=== PATIENT | male | born 1965 | race Caucasian/White ===

== ENCOUNTER 2023-11-04 05:30 | Inpatient (IN) ==
[~2023-11-04 05:30] MED LIST: OFIRMEV IV 1000 MG VIAL IV ONE
[2023-11-04] MEDS ORDERED: ANCEF VIAL 1 GRAM ONE (08:15)
[2023-11-04] MEDS ORDERED: NS 100 ML IV 100 ML ONE (08:15)
[2023-11-04] MEDS ORDERED: NOZIN NASAL SANITIZER TP ONE (08:15)
[2023-11-04] MEDS ORDERED: LR 1,000 ML IV 1,000 ML IV ONE (08:16)
[2023-11-04 09:30] VITALS: BMI 32.1
[2023-11-04] MEDS ORDERED: DUONEB 0.5 MG/3 MG (3 mL) NEB ONE (09:37)
[2023-11-04] MEDS ORDERED: HEPARIN SODIUM INJ 5000 UNITS ONE (10:05)
[2023-11-04] MEDS ORDERED: PEPCID 20 MG VIAL ONE (10:05)
[2023-11-04] MEDS ORDERED: DIPRIVAN VIAL 20 ML ONE ×2 (10:05→10:09)
[2023-11-04] MEDS ORDERED: ZOFRAN INJ 4 MG VIAL ONE (10:05)
[2023-11-04] MEDS ORDERED: FENTANYL VIAL INJ 100 mcg ONE ×2 (10:08→12:10)
[2023-11-04] MEDS ORDERED: VERSED ONE (10:08)
[2023-11-04] MEDS ORDERED: MARCAINE 0.5% ONE ×3 (11:11→13:49)
[2023-11-04] MEDS ORDERED: HEPARIN SODIUM IN D5W 75,000 UNITS/1,500 ML BAG ONE (11:12)
[2023-11-04] MEDS ORDERED: KETAMINE HCL ONE (11:34)
[2023-11-04] MEDS ORDERED: XYLOCAINE 2 % (PLAIN) ONE (11:34)
[2023-11-04] MEDS ORDERED: PRECEDEX INJ VIAL IVP ONE (11:34)
[2023-11-04] MEDS ORDERED: VISIPAQUE 100 ML ONE (12:02)
[2023-11-04] MEDS ORDERED: ROBINUL ONE (12:22)
[2023-11-04] MEDS ORDERED: HESPAN IV IN NS 500 ML IV ONE (12:33)
[2023-11-04] MEDS ORDERED: NS 1,000 ML IV 1,000 ML ONE (12:34)
[2023-11-04] MEDS ORDERED: DIPRIVAN VIAL 40 ML ONE (12:46)
[2023-11-04] MEDS ORDERED: DECADRON INJ ONE (12:56)
[2023-11-04] MEDS ORDERED: PROTAMINE SULFATE 50 MG VIAL ONE (13:25)
[2023-11-04 13:34] LABS: BASOPHILS # (AUTO) 0.1 X10^3/uL (0.0-0.1); BASOPHILS % (AUTO) 0.8 % (0.2-1.0); EOSINOPHILS # (AUTO) 0.2 x10^3/uL (0.0-0.2); EOSINOPHILS % (AUTO) 2.7 % (0.9-2.9); HEMATOCRIT 34.6 % (42.0-54.0); HEMOGLOBIN 11.5 g/dL (13.5-18.0); LYMPHOCYTES # (AUTO) 1.2 X10^3/uL (1.3-2.9); LYMPHOCYTES % (AUTO) 18.7 % (21.0-51.0); MEAN CORPUSCULAR HEMOGLOBIN 30.3 pg (27.0-34.0); MEAN CORPUSCULAR HGB CONC 33.2 g/dL (33.0-35.0); MEAN CORPUSCULAR VOLUME 91.1 fL (80.0-100.0); MEAN PLATELET VOLUME 9.6 fL (7.4-11.0); MONOCYTES # (AUTO) 0.3 x10^3/uL (0.3-0.8); MONOCYTES % (AUTO) 4.5 % (0.0-13.0); NEUTROPHILS # (AUTO) 4.7 x10^3/uL (2.2-4.8); NEUTROPHILS % (AUTO) 73.3 % (42.0-75.0); PLATELET COUNT 141 X10^3/uL (150.0-450.0); RED BLOOD COUNT 3.79 X10^6/uL (4.7-6.0); RED CELL DISTRIBUTION WIDTH 13.9 % (11.6-16.5); WHITE BLOOD COUNT 6.5 X10^3/uL (3.6-10.0)
[2023-11-04] MEDS ORDERED: NEO-SYNEPHRINE INJ ONE (13:41)
[2023-11-04] MEDS ORDERED: DILAUDID INJ IVP PRN ×2 (14:11→14:19)
[2023-11-04] MEDS ORDERED: ZOFRAN INJ 4 MG VIAL IVP PRN (14:11)
[2023-11-04] MEDS ORDERED: REGLAN INJ 10 MG VIAL IVP PRN (14:11)
[2023-11-04] MEDS ORDERED: BARHEMSYS INJ IVP PRN (14:11)
[2023-11-04] MEDS ORDERED: BENADRYL INJ 50 MG VIAL IVP PRN (14:11)
[2023-11-04] MEDS ORDERED: PERCOCET TAB 5/325 MG PO PRN (14:19)
--- NOTE | 2023-11-04 14:19 | OR.IMMED ---
IMMEDIATE POST-OP NOTE Immediate Post-Op Note Date of surgery/procedure: 11/04/23 Pre-Op Diagnosis: Critical ischemia left leg , completely occluded left common iliac artery ,completely occluded left popliteal artery with 3 vessel runoff Post-Op Diagnosis: critical schema left leg , completely occluded left common iliac artery Procedure: bilateral common femoral cut-downs, arteriogram left leg, femoral femoral bypass Description of Procedure: see dictation Surgeon/Route Vending Machine Servicer: Joelle Findings: as above Estimated Blood Loss: 600cc Complications: none Progress Notes: Patient taking to PACU with excellent Doppler signals in both ankles , no bleeding from each groin , hemoglobin equals 11.5, patient. Not tacycardic , hypertensive
[2023-11-04] MEDS: LR 1,000 ML IV 1,000 ML IV SCH ×2 (15:40→23:15)
[2023-11-04] MEDS ORDERED: NS IRRIGATION* 500 ML IR ONE (16:23)
[2023-11-05 05:32] LABS: HEMOGLOBIN 9.9 g/dL (13.5-18.0)
[2023-11-05 05:39] LABS: BASOPHILS % (AUTO) 0.3 % (0.2-1.0); HEMATOCRIT 29.1 % (42.0-54.0); LYMPHOCYTES # (AUTO) 0.4 X10^3/uL (1.3-2.9); LYMPHOCYTES % (AUTO) 2.9 % (21.0-51.0); MEAN CORPUSCULAR HEMOGLOBIN 30.7 pg (27.0-34.0); MEAN CORPUSCULAR VOLUME 90.4 fL (80.0-100.0); MONOCYTES # (AUTO) 0.3 x10^3/uL (0.3-0.8); MONOCYTES % (AUTO) 2.6 % (0.0-13.0); NEUTROPHILS # (AUTO) 11.7 x10^3/uL (2.2-4.8); NEUTROPHILS % (AUTO) 94.2 % (42.0-75.0); PLATELET COUNT 146 X10^3/uL (150.0-450.0); RED BLOOD COUNT 3.22 X10^6/uL (4.7-6.0); RED CELL DISTRIBUTION WIDTH 13.7 % (11.6-16.5); WHITE BLOOD COUNT 12.4 X10^3/uL (3.6-10.0)
[2023-11-05 05:41] LABS: BLOOD UREA NITROGEN 12 mg/dL (7-18); CALCIUM 7.5 mg/dL (8.5-10.1); CARBON DIOXIDE 24.7 mmol/L (21-32); CHLORIDE 103 mmol/L (98-107); COR NA(FOR HYPERGLY) 137 mmol/L (136-145); CREATININE 1.16 mg/dL (0.70-1.30); GLUCOSE 221 mg/dL (65-99); POTASSIUM 4.3 mmol/L (3.5-5.1); SODIUM 134 mmol/L (136-145); eGFR NON BLACK RACES > 60 (>60)
[2023-11-05 06:07] LABS: PLATELET MORPHOLOGY COMMENT NORMAL (NORMAL)
[2023-11-05] MEDS ORDERED: TOPROL XL PO ONE (08:55)
[2023-11-05] MEDS ORDERED: ZETIA TAB 10 MG PO SCH (09:00)
[2023-11-05] MEDS ORDERED: LOVENOX INJ 40 MG SYR SC SCH (09:00)
[2023-11-05] MEDS ORDERED: COZAAR PO SCH (09:00)
[2023-11-05] MEDS ORDERED: TOPROL XL PO SCH (09:00)
[2023-11-05] MEDS ORDERED: ASPIRIN EC 81 MG PO SCH (09:00)
[2023-11-05 09:15] VITALS: TEMP 97.8
[2023-11-05] MEDS: LR 1,000 ML IV 1,000 ML IV SCH (09:16)
--- NOTE | 2023-11-05 12:16 | W.DIS.FURT ---
Summary of Discharge Discharge Summary of Date Date of Exam: 11/05/23 Admission Date Date of Admission: 11/04/23 Admission Diagnosis Hospital Course: This patient is a 58 year old male with significant history of peripheral vascular disease and chronic tobacco abuse. He is known to have common left iliac artery occlusion, which could not be crossed either from above or below in a peripheral fashion . CT and also suggested possible left popliteal occlusion. Patient was taken to the operating suite yesterday where he underwent arteriogram of the the left leg showing no significant occlusion. At that time he underwent a femoral femoral bypass to resolve the left common iliac artery occlusion . He has done well . He has excellent Hood Fitter signals in both ankles period he is walking without assistance and will be discharged home on his usual medications.These will include Xarelto and aspirin.He will be given prescription for Percocet , 5 milligram tablets , 1 every 6 hours PRN pain , He will follow up with me in 1 week . I have encouraged him to stop smoking. I'm just talking to myself. Vital Signs: Vital Signs (72 hours) 11/04/23 08:40 11/04/23 08:40 11/04/23 14:02 Temperature 97.5 F L 97.8 F Pulse Rate 56 L 56 L 75 Respiratory Rate 16 16 Blood Pressure 172/72 140/75 O2 Sat by Pulse Oximetry 100 95 Oxygen Delivery Method Room Air Nasal Cannula 11/04/23 14:17 11/04/23 14:22 11/04/23 14:27 Temperature Pulse Rate 78 76 73 Respiratory Rate 17 18 18 Blood Pressure 142/63 134/62 137/58 O2 Sat by Pulse Oximetry 95 95 99 Oxygen Delivery Method Nasal Cannula Nasal Cannula Nasal Cannula 11/04/23 14:07 11/04/23 14:12 11/04/23 14:32 Temperature Pulse Rate 78 78 71 Respiratory Rate 16 16 18 Blood Pressure 177/79 153/67 114/57 O2 Sat by Pulse Oximetry 94 L 95 99 Oxygen Delivery Method Nasal Cannula Nasal Cannula Nasal Cannula 11/04/23 14:53 11/04/23 15:05 11/04/23 15:06 Temperature Pulse Rate 65 Respiratory Rate 11 L 9 L Blood Pressure 106/54 O2 Sat by Pulse Oximetry 99 Oxygen Delivery Method 11/04/23 15:06 11/04/23 15:15 11/04/23 15:15 Temperature Pulse Rate 65 62 Respiratory Rate 6 L 13 Blood Pressure 103/54 O2 Sat by Pulse Oximetry 99 97 Oxygen Delivery Method 11/04/23 15:30 11/04/23 15:30 11/04/23 15:45 Temperature Pulse Rate 59 L 55 L Respiratory Rate 12 12 Blood Pressure 100/52 O2 Sat by Pulse Oximetry 99 100 Oxygen Delivery Method 11/04/23 15:45 11/04/23 16:00 11/04/23 16:00 Temperature Pulse Rate 56 L Respiratory Rate 16 Blood Pressure 96/53 106/52 O2 Sat by Pulse Oximetry 96 Oxygen Delivery Method 11/04/23 16:15 11/04/23 16:15 11/04/23 15:23 Temperature Pulse Rate 54 L Respiratory Rate 18 11 L Blood Pressure 104/54 O2 Sat by Pulse Oximetry 97 Oxygen Delivery Method 11/04/23 16:30 11/04/23 16:30 11/04/23 16:45 Temperature Pulse Rate 50 L 48 L Respiratory Rate 13 10 L Blood Pressure 98/51 O2 Sat by Pulse Oximetry 96 97 Oxygen Delivery Method 11/04/23 16:45 11/04/23 17:00 11/04/23 17:00 Temperature Pulse Rate 48 L Respiratory Rate 15 Blood Pressure 101/51 106/53 O2 Sat by Pulse Oximetry 96 Oxygen Delivery Method 11/04/23 17:00 11/04/23 17:00 11/04/23 17:15 Temperature Pulse Rate 48 L 58 L Respiratory Rate 15 21 Blood Pressure 106/53 O2 Sat by Pulse Oximetry 96 98 Oxygen Delivery Method 11/04/23 17:15 11/04/23 17:30 11/04/23 17:30 Temperature Pulse Rate 49 L Respiratory Rate 13 Blood Pressure 114/57 106/52 O2 Sat by Pulse Oximetry 97 Oxygen Delivery Method 11/04/23 17:45 11/04/23 17:45 11/04/23 18:00 Temperature Pulse Rate 58 L Respiratory Rate 25 H Blood Pressure 116/58 118/59 O2 Sat by Pulse Oximetry 100 Oxygen Delivery Method 11/04/23 18:00 11/04/23 18:15 11/04/23 18:21 Temperature Pulse Rate 54 L 51 L 58 L Respiratory Rate 24 13 24 Blood Pressure O2 Sat by Pulse Oximetry 99 97 99 Oxygen Delivery Method 11/04/23 18:21 11/04/23 18:30 11/04/23 18:30 Temperature Pulse Rate 51 L Respiratory Rate 15 Blood Pressure 121/56 109/55 O2 Sat by Pulse Oximetry 98 Oxygen Delivery Method 11/04/23 18:45 11/04/23 18:46 11/04/23 18:46 Temperature Pulse Rate 51 L 58 L Respiratory Rate 19 29 H Blood Pressure 116/56 O2 Sat by Pulse Oximetry 100 100 Oxygen Delivery Method 11/04/23 19:00 11/04/23 20:00 11/04/23 19:00 Temperature 98.0 F Pulse Rate 50 L 53 L Respiratory Rate 22 20 Blood Pressure 126/61 107/53 O2 Sat by Pulse Oximetry 99 97 Oxygen Delivery Method Room Air Room Air Room Air 11/04/23 21:00 11/04/23 22:00 11/04/23 23:00 Temperature Pulse Rate 52 L 57 L 54 L Respiratory Rate 20 22 23 Blood Pressure 131/59 124/59 118/58 O2 Sat by Pulse Oximetry 97 98 98 Oxygen Delivery Method Room Air Room Air Room Air 11/05/23 00:00 11/05/23 01:00 11/05/23 02:00 Temperature 97.7 F Pulse Rate 57 L 59 L 62 Respiratory Rate 22 20 18 Blood Pressure 120/58 128/60 127/62 O2 Sat by Pulse Oximetry 99 98 99 Oxygen Delivery Method Room Air Room Air Room Air 11/05/23 03:00 11/05/23 04:00 11/05/23 04:15 Temperature 98.2 F Pulse Rate 60 62 Respiratory Rate 20 14 12 Blood Pressure 151/66 144/56 O2 Sat by Pulse Oximetry 99 99 Oxygen Delivery Method Room Air Room Air 11/05/23 05:00 11/05/23 06:00 11/05/23 05:15 Temperature Pulse Rate 61 59 L Respiratory Rate 23 14 14 Blood Pressure 153/67 140/63 O2 Sat by Pulse Oximetry 99 99 Oxygen Delivery Method Room Air Room Air 11/05/23 07:00 11/05/23 06:45 11/05/23 07:00 Temperature Pulse Rate 59 L Respiratory Rate 17 Blood Pressure 143/62 O2 Sat by Pulse Oximetry 98 Oxygen Delivery Method Room Air 11/05/23 07:00 11/05/23 07:15 11/05/23 07:30 Temperature Pulse Rate 56 L 56 L 57 L Respiratory Rate 19 17 21 Blood Pressure O2 Sat by Pulse Oximetry 99 98 98 Oxygen Delivery Method 11/05/23 07:30 11/05/23 07:45 11/05/23 08:00 Temperature Pulse Rate 72 Respiratory Rate 26 H Blood Pressure 141/61 136/56 O2 Sat by Pulse Oximetry 99 Oxygen Delivery Method 11/05/23 08:00 11/05/23 08:15 11/05/23 08:30 Temperature Pulse Rate 64 60 Respiratory Rate 22 23 Blood Pressure 136/58 O2 Sat by Pulse Oximetry 99 99 Oxygen Delivery Method 11/05/23 08:30 11/05/23 08:45 11/05/23 09:00 Temperature 97.8 F Pulse Rate 60 60 Respiratory Rate 24 21 Blood Pressure 133/60 O2 Sat by Pulse Oximetry 98 99 Oxygen Delivery Method 11/05/23 09:00 11/05/23 09:15 11/05/23 09:30 Temperature Pulse Rate 63 63 61 Respiratory Rate 22 23 25 H Blood Pressure O2 Sat by Pulse Oximetry 99 99 99 Oxygen Delivery Method 11/05/23 09:31 11/05/23 09:31 11/05/23 09:45 Temperature Pulse Rate 62 61 Respiratory Rate 24 21 Blood Pressure 130/60 O2 Sat by Pulse Oximetry 99 99 Oxygen Delivery Method 11/05/23 10:00 11/05/23 10:00 11/05/23 10:15 Temperature Pulse Rate 62 67 Respiratory Rate 24 34 H Blood Pressure 147/65 O2 Sat by Pulse Oximetry 100 100 Oxygen Delivery Method 11/05/23 10:30 11/05/23 10:41 11/05/23 10:41 Temperature Pulse Rate 66 66 Respiratory Rate 28 H 20 Blood Pressure 143/63 O2 Sat by Pulse Oximetry 98 100 Oxygen Delivery Method 11/05/23 10:45 11/05/23 11:00 11/05/23 11:00 Temperature Pulse Rate 65 62 Respiratory Rate 26 H 23 Blood Pressure 133/60 O2 Sat by Pulse Oximetry 99 99 Oxygen Delivery Method Labs: Laboratory Last Values WBC 12.4 X10^3/uL (3.6-10.0) H 11/05/23 05:00 RBC 3.22 X10^6/uL (4.7-6.0) L 11/05/23 05:00 Hgb 9.9 g/dL (13.5-18.0) L 11/05/23 05:00 Hct 29.1 % (42.0-54.0) L 11/05/23 05:00 MCV 90.4 fL (80.0-100.0) 11/05/23 05:00 MCH 30.7 pg (27.0-34.0) 11/05/23 05:00 MCHC 34.0 g/dL (33.0-35.0) 11/05/23 05:00 RDW 13.7 % (11.6-16.5) 11/05/23 05:00 Plt Count 146 X10^3/uL (150.0-450.0) L 11/05/23 05:00 Plt Count Comment Decreased (ADEQUATE) 11/05/23 05:00 MPV 10.0 fL (7.4-11.0) 11/05/23 05:00 Neut % (Auto) 94.2 % (42.0-75.0) H 11/05/23 05:00 Lymph % (Auto) 2.9 % (21.0-51.0) L 11/05/23 05:00 [place] % (Auto) 2.6 % (0.0-13.0) 11/05/23 05:00 Eos % (Auto) 0.0 % (0.9-2.9) L 11/05/23 05:00 Baso % (Auto) 0.3 % (0.2-1.0) 11/05/23 05:00 Neut # (Auto) 11.7 x10^3/uL (2.2-4.8) H 11/05/23 05:00 Lymph # (Auto) 0.4 X10^3/uL (1.3-2.9) L 11/05/23 05:00 [place] # (Auto) 0.3 x10^3/uL (0.3-0.8) 11/05/23 05:00 Eos # (Auto) 0.0 x10^3/uL (0.0-0.2) 11/05/23 05:00 Baso # (Auto) 0.0 X10^3/uL (0.0-0.1) 11/05/23 05:00 Absolute Nucleated RBC 0.0 /100WBC 11/05/23 05:00 Total Counted 100 11/05/23 05:00 Neutrophils % (Manual) 97 % (39-76) H 11/05/23 05:00 Lymphocytes % (Manual) 1 % (13-43) L 11/05/23 05:00 Monocytes % (Manual) 1 % (4-9) L 11/05/23 05:00 Eosinophils % (Manual) 1 % (0-6) 11/05/23 05:00 Plt Morphology Comment Normal (NORMAL) 11/05/23 05:00 RBC Morphology Normal (NORMAL) 11/05/23 05:00 Sodium 134 mmol/L (136-145) L 11/05/23 05:00 Corrected Sodium 137 mmol/L (136-145) 11/05/23 05:00 Potassium 4.3 mmol/L (3.5-5.1) 11/05/23 05:00 Chloride 103 mmol/L (98-107) 11/05/23 05:00 Carbon Dioxide 24.7 mmol/L (21-32) 11/05/23 05:00 BUN 12 mg/dL (7-18) 11/05/23 05:00 Creatinine 1.16 mg/dL (0.70-1.30) 11/05/23 05:00 Est GFR (MDRD) Af Amer > 60 (>60) 11/05/23 05:00 Est GFR (MDRD) Non-Af > 60 (>60) 11/05/23 05:00 Glucose 221 mg/dL (65-99) H 11/05/23 05:00 Calcium 7.5 mg/dL (8.5-10.1) L 11/05/23 05:00 Reason For Visit: FEMOROFEMORAL BYPASS Discharge Date Discharge Date: 11/05/23 Discharge Diagnosis All Active Problems (Updated 11/05/23 @ 11:56 by Felipe Lai) Critical limb ischemia of left lower extremity (Acute) Occlusion of left iliac artery (Acute) Plan of Treatment: Continue with present treatment and follow up plan. Pt is to keep follow up appointment as instructed and take medications as ordered. Discharge Medications Discharge Medications: No Known Allergies Allergy (Verified 09/18/23 06:56) CONTINUE taking the following medications rivaroxaban 2.5 mg tablet (Xarelto) 2.5 mg PO BID 11/04/23 [History] aspirin 81 mg po daily, Percocet, 5 mg , 1 PO q 6hr PRN Discharge Disposition Assessment: see hospital course . Discharge Plan Discharge Plan Hospital Course: This patient is a 58 year old male with significant history of peripheral vascular disease and chronic tobacco abuse. He is known to have common left iliac artery occlusion, which could not be crossed either from above or below in a peripheral fashion . CT and also suggested possible left popliteal occlusion. Patient was taken to the operating suite yesterday where he underwent arteriogram of the the left leg showing no significant occlusion. At that time he underwent a femoral femoral bypass to resolve the left common iliac artery occlusion . He has done well . He has excellent Hood Fitter signals in both ankles period he is walking without assistance and will be discharged home on his usual medications.These will include Xarelto and aspirin.He will be given prescription for Percocet , 5 milligram tablets , 1 every 6 hours PRN pain , He will follow up with me in 1 week . I have encouraged him to stop smoking. I'm just talking to myself. Patient Disposition: 01 HOME, SELF-CARE Condition: Stable Health Concerns: Post Hospitalization: new medications and changes needed to prevent readmission or further decline. Pt educated and given instructions on all concerns. Care Plan Goals: Problem: Pain/Alteration in Comfort Goal: Improve/ Resolve Pain; Achieve Pain Tolerance Instructions: Take pain medications as prescribed. Contact your primary care provider if your pain is unrelieved or worsens. Follow up with primary care provider as directed. Plan of Treatment: Continue with present treatment and follow up plan. Pt is to keep follow up appointment as instructed and take medications as ordered. Assessment: see hospital course . Prescription drug monitoring program results: PDMP reviewed and no concerns identified Prescriptions: New oxycodone-acetaminophen [Percocet] 5-325 mg tablet 1 tab PO Q6H MDD 4 PRNQty: 30 0RF Continued Xarelto 2.5 mg Tablet 2.5 mg PO BID omega [id number]-fish oil [Fish Oil] 1,000 mg (120 mg-180 mg) Capsule 1 cap PO QDAY metoprolol succinate 100 mg Capsule,Sprinkle,Er 24hr 150 mg PO QDAY aspirin 81 mg Capsule 81 mg PO QDAY ezetimibe 10 mg Tablet 10 mg PO QDAY losartan 100 mg Tablet 100 mg PO HS Follow ups/Referrals Follow ups/Referrals: Felipe Lai [STAFF PHYSICIAN] - 11/10/23 10:30 am Instructions Instructions: Endovascular Therapy for Peripheral Vascular Disease, Care After, Pain Medicine Instructions, [id number], Femorofemoral Bypass Stand Alone Forms: Post Hospital Follow Up Care
[2023-11-05 13:15] VITALS: BP 121/56; PULSE 57; RESP 25; O2SAT 99
--- NOTE | 2023-11-06 22:58 | DR.OPNOTE ---
OP NOTE Pre-Op Diagnosis: Critical ischemia left leg, completely occluded left common iliac artery Post-Op Diagnosis: same Procedure Date Date Of Procedure: 11/04/23 Procedure: PROCEDURE: Left lower extremity arteriogram ,femoral femoral bypass NARRATIVE:The patient was taken to the operative suite and placed in the supine position . He was administered intravenous sedation supervised by myself .Both groins and the lower abdomen and entire left leg were prepped and draped in sterile fashion. The skin over the left groin infiltrated with 0.5% Marcaine. A vertical incision was made with the number 15 knife blade in the left groin and dissection carried down sharply to the femoral artery. The femoral artery ,superficial femoral artery and profundus femoris were dissected free and vessel loops placed around all of them. A 16 gauge needle was used to puncture the left superficial femoral artery at its junction with the common femoral artery and a 0.012 inch guide wire placed. A micro sheath placed over the wire into the superficial femoral artery and arteriogram carried out showing no significant occlusion of the vessels of the left leg all the way to the foot . The skin overlying the right groin was then infiltrated with 0.5% Marcaine .A vertical incision was made with a number of 15 blade knife and sharp dection carried down identifying the common femoral artery, superficial femoral artery and the profunda femoris .Vessel Loops placed around all of these arteries. An 8 millimeter ringed Gortex graft was tunneled over the super pubic area in the subcutaneous tissue and into each groin incision . The patient was given 5,000 units of intravenous Heparin . The left common femoral artery clamped with a Statinsky clamp and the other vessels occluded with the vessel loops . The left common femoral artery opened with a number 11 knife blade and Pott's scissors .The graft fashioned for anastomosis and the anastomosis - performed with running 5-0 Prolene suture. The graft was clamped and the vessel unclamped. Tke only bleeding was from the needle sticks of the suture line. Surgical placed here .The right common femoral clamped and the other vessels occluded with the vessel loops . The right common femoral artery opened with a number 11 knife blade and Pott's scissors . The graft fashioned for anastomosis and the anastomosis performed with running 5-0 Prolene suture .The clamp removed and the only bleeding was from the needle sticks. This was also controlled with surgicel .The patient given 30 milligrams of intravenous Protamine . When all the bleeding was stopped both groins irrigated with saline and each closed with 2 layers of running 2-0 Vicryl suture . The skin of each incision closed with skin [place] . The patient taken to the recovery room in good condition. The patietn had excellent Doppler signals in both ankles . The patient will be taken to the ICU for continued recovery . Type of Anesthesia: Local (0.5% Marcaine) Anesthesia Comment: plus MAC Findings: as above Type of Fluids Used:: Lactated Ringers Total Amount of Fluid Infused:: 2400cc Urine output: 300cc EBL: 600 cc Complications:: none Needle/Sponge Count:: correct Disposition/Condition: Pt. tolerated procedure without difficulty. Patient taken to PACU in stable condition.
== END 2023-11-05 13:10 | disposition home or self-care (01) | DRG 253 ==
LOC: MED/SURG 08:02 → ICU 14:23
PROVIDERS: ADMIT Surgery; ATTEND Surgery
DX: I74.5 Embolism and thrombosis of iliac artery; I25.10 Atherosclerotic heart disease of native coronary artery without angina pectoris; I70.222 Atherosclerosis of native arteries of extremities with rest pain, left leg; E78.5 Hyperlipidemia, unspecified; I10 Essential (primary) hypertension; Z72.0 Tobacco use